=== PATIENT | female | born 1970 | race Caucasian/White ===

== ENCOUNTER 2017-06-29 01:36 | Emergency (ER) | payer BC, OTHER ==
[~2017-06-29] VITALS: Ht 170.2 cm; Wt 84.9 kg
[2017-06-29 01:44] VITALS: BP 154/73; PULSE 125; RESP 18; TEMP 100.2; O2SAT 99
[2017-06-29 01:57] VITALS: O2SAT 99
[2017-06-29 02:16] VITALS: PULSE 104; RESP 18; TEMP 101.9; O2SAT 98
[2017-06-29] MEDS ORDERED: ACETAMINOPHEN 500 MG CPLT PO ONE (02:45)
[2017-06-29 02:47] LABS: BILIRUBIN, URINE NEG (NEG); BLOOD, URINE SMALL (NEG); GLUCOSE,URINE NEG (NEG); KETONE, URINE NEG (NEG); NITRITE,URINE NEG (NEG); PH, URINE 5.5 (5.0-8.5); URINE COLOR YELLOW (YELLW/STRAW); URINE LEUKOCYTE ESTERASE NEG (NEG)
--- NOTE | 2017-06-29 02:55 | PD ---
HPI Chief Complaint: Fever Time Seen by Provider: 02:35 Travel History International Travel<30 days: No Contact w/Intl Traveler<30days: No Traveled to known affect area: No History of Present Illness HPI 47-year-old female presents to the emergency department for 2 days of fever. Patient had myalgias arthralgias headache. Patient denies other complaints or concerns. Patient took 4 Aleve this evening prior to coming to the emergency room. Patient reports that she is visiting from out of town that therefore did not check her temperature with thermometer. Patient denies sinus pressure drainage sore throat earache neck stiffness neck pain cough congestion shortness of breath wheezing chest pain abdominal pain vomiting diarrhea dysuria frequency urgency flank pain hematuria vaginal discharge or vaginal bleeding joint swelling or skin rash. Patient does admit to myalgias and arthralgias. Patient did not have the vaccine. Last menstrual period ended 1 week ago and denies . Patient uses sanitary napkins not tampons. PFSH Past Medical History Narrative Medical Hirsutism polycystic ovary disease; laparotomy; nursing notes reviewed Medical History: Denies Significant Hx Diminished Hearing: No Tetanus Vaccination: Unknown Influenza Vaccination: No ?: Not LMP: 06/22/17 Menopausal: No Past Surgical History Surgical History: No Previous Surgery Social History Alcohol Use: No Tobacco Use: No Substance Use: No Allergies-Medications (Allergen,Severity, Reaction): Coded Allergies: spironolactone (Verified Allergy, Intermediate, Itching, 06/29/17) Reported Meds & Prescriptions Reported Meds & Active Scripts Active Zofran Odt (Ondansetron Odt) 4 Mg Tab 4 Mg SL Q6HR PRN Narrative Medication Aleve Review of Systems Except as stated in HPI: all other systems reviewed are Neg General / Constitutional: Positive: Fever, No: Chills HENT: Positive: Headaches, No: Vertigo, Lightheadedness, Sore Throat, Rhinorrhea, Congestion, Neck Stiffness, Neck Pain, Earache Cardiovascular: No: Chest Pain or Discomfort Respiratory: No: Cough, Shortness of Breath, Wheezing Gastrointestinal: Positive: Nausea, No: Vomiting, Diarrhea, Abdominal Pain Genitourinary: No: Frequency, Dysuria, Flank Pain Musculoskeletal: Positive: Myalgias, Arthralgias Neurologic: No: Weakness, Dizziness, Syncope Psychiatric: No: Anxiety Hematologic/Lymphatic: No: Lymph Node Enlargement Physical Exam Narrative GENERAL: Well-developed well-nourished female no acute distress no respiratory distress SKIN: Warm and dry. HEAD: Normocephalic. EYES: No scleral icterus. No injection or drainage. ENT: Mucous membranes moist airway is patent no sinus pressure no posterior pharyngeal drainage redness induration edema or exudative change tympanic membranes no redness dullness or loss of landmarks. NECK: Supple, trachea midline. No JVD or lymphadenopathy. No meningismus no nuchal rigidity. CARDIOVASCULAR: Increased regular rate and rhythm without murmurs, gallops, or rubs. RESPIRATORY: Breath sounds equal bilaterally. No accessory muscle use. GASTROINTESTINAL: Abdomen soft, non-tender, nondistended. MUSCULOSKELETAL: No cyanosis, or edema. BACK: Nontender without obvious deformity. No CVA tenderness. Data Data Last Documented VS Vital Signs Date Time Temp Pulse Resp B/P (MAP) Pulse Ox O2 Delivery O2 Flow Rate FiO2 06/29/17 04:03 101.9 06/29/17 02:16 104 18 98 Room Air Orders Orders Acetaminophen (Tylenol) (06/29/17 02:45) Influenzae A/B Antigen (06/29/17 02:35) Urinalysis - C+S If Indicated (06/29/17 02:35) Ondansetron Odt (Zofran Odt) (06/29/17 03:15) Ibuprofen (Motrin) (06/29/17 04:45) Ed Discharge Order (06/29/17 04:35) Labs Laboratory Tests Test 06/29/17 02:40 Urine Color YELLOW Urine Turbidity CLEAR Urine pH 5.5 Urine Specific [place] LESS/EQUAL 1.005 Urine Protein NEG mg/dL Urine Glucose (UA) NEG mg/dL Urine Ketones NEG mg/dL Urine Occult Blood SMALL Urine Nitrite NEG Urine Bilirubin NEG Urine Urobilinogen 0.2 MG/DL Urine Leukocyte Esterase NEG Urine RBC 4-9 /hpf Urine WBC 0-2 /hpf Urine Squamous Epithelial Cells 0-5 /hpf Urine Bacteria NONE /hpf Microscopic Urinalysis Comment CULT NOT INDICATED MDM Medical Decision Making Medical Screen Exam Complete: Yes Emergency Medical Condition: Yes Medical Record Reviewed: Yes Interpretation(s) influenza a/b ag: negative ua: few rbc/blood Differential Diagnosis Febrile illness, viral syndrome, sinusitis, pneumonia, UTI Narrative Course Patient administered weight-based acetaminophen Urinalysis normal except for a few RBCs; influenza antigen negative It is 4:30 AM patient temperature is now showing evidence of responding to antipyretic acetaminophen 101.5 however patient now states that her last dose of Aleve was actually at 4 PM on Saturday therefore will give a one-time dose of weight-based ibuprofen now in the emergency department. Patient is encouraged to use acetaminophen and ibuprofen for fever management instead of Aleve. Taking oral hydration well. Diagnosis Primary Impression: Viral syndrome Referrals: Primary Care Physician 2 days Patient Instructions: General Instructions Additional Instructions: Increase fluid hydration Take acetaminophen/Tylenol every 4 hours for fever 100.4F or greater Take ibuprofen/Advil/Motrin 800 mg as often as every 8 hours for fever 100.4F or greater or for pain associated with inflammation; may take instead ibuprofen 600 mg as often as every 6 hours as needed for fever or inflammation associated pain No work 2 days Rest Return to the emergency department for any concerns or change in condition Follow-up with your primary care provider call office on Saturday to schedule follow-up appointment Med/Other Pt SpecificInfo: Prescription(s) given Scripts Ondansetron Odt (Zofran Odt) 4 Mg Tab 4 MG SL Q6HR Y for Nausea/Vomiting, #10 TAB 0 Refills Prov: Griselda Pope MD 06/29/17 Disposition: 01 DISCHARGE HOME Condition: Stable Griselda Pope MD Jun 29, 2017 02:54
[2017-06-29 02:57] LABS: SQUAMOUS EPITHELIAL CELL URINE 0-5 /hpf (0-5); WBC, URINE 0-2 /hpf (0-5)
[2017-06-29] MEDS ORDERED: ONDANSETRON ODT 4 MG TAB PO ONE (03:15)
[2017-06-29 04:03] VITALS: TEMP 101.9
[2017-06-29] MEDS ORDERED: ZOFR4TAB3 SL (04:34)
[2017-06-29] MEDS ORDERED: IBUPROFEN 800 MG TAB PO ONE (04:45)
[2017-06-29 05:09] VITALS: BP 141/70; PULSE 96; RESP 18; TEMP 99.6; O2SAT 98
[2017-06-29 05:10] VITALS: TEMP 99.6
== END 2017-06-29 05:11 | disposition home or self-care (01) ==
LOC: PHED 01:36
DX: B34.9 Viral infection, unspecified (principal); E28.2 Polycystic ovarian syndrome; L68.0 Hirsutism
CPT/HCPCS: 81001; 87804; 99283